=== PATIENT | male | born 1980 | race Hispanic/Latino ===

== ENCOUNTER 2024-03-25 13:43 | Emergency (ER) | payer SELFPAY | END 2024-03-25 15:29 | disposition home or self-care (01) | LOC: ERS 13:43 | DX: S61.012D Laceration without foreign body of left thumb without damage to nail, subsequent encounter (principal); F17.290 Nicotine dependence, other tobacco product, uncomplicated; W26.8XXD Contact with other sharp object(s), not elsewhere classified, subsequent encounter | CPT/HCPCS: 99282 ==